=== PATIENT | female | born 1945 | race Caucasian/White ===

== ENCOUNTER 2025-01-02 09:02 | Outpatient (CLI) | payer MEDICARE, OTHER, SELFPAY | END 2025-01-02 09:03 | disposition home or self-care (01) | LOC: INJ CL 09:07 | PROVIDERS: PCP Family Medicine; Visit Provider Family Medicine | DX: M54.16 Radiculopathy, lumbar region (principal); M48.062 Spinal stenosis, lumbar region with neurogenic claudication; M51.369 Other intervertebral disc degeneration, lumbar region without mention of lumbar back pain or lower extremity pain | CPT/HCPCS: 62323; J0702; Q9966 ==

== ENCOUNTER 2025-02-07 09:15 | Outpatient (RCR) | payer MEDICARE, OTHER, SELFPAY | END 2025-05-18 13:53 | disposition home or self-care (01) | PROVIDERS: PCP Family Medicine; Visit Provider Family Medicine | DX: M54.16 Radiculopathy, lumbar region (principal); M47.896 Other spondylosis, lumbar region; M48.00 Spinal stenosis, site unspecified; M43.16 Spondylolisthesis, lumbar region; Z51.89 Encounter for other specified aftercare | CPT/HCPCS: 97110; 97140; 97162 ==